=== PATIENT | male | born 1975 | race Two or more races ===

== ENCOUNTER 2020-03-20 13:58 | Emergency (ER) | payer MEDICAID ==
[~2020-03-20] VITALS: Ht 160 cm; Wt 90.7 kg
[2020-03-20 14:04] VITALS: BP 143/81
--- NOTE | 2020-03-20 14:08 | NUR ---
WAITING FOR ER MD TO SEE; PLACED TO ER CHAIR 2
[2020-03-20] MEDS ORDERED: KETOROLAC TROMETHAMINE INJ 30 MG/ML VIAL ONE (14:57)
[2020-03-20] MEDS ORDERED: LIDOCAINE HCL/PF 1% 30 ML SDV ONE (14:59)
[2020-03-20] MEDS ORDERED: LIDOCAINE 1% INJ 50 ML MDV IJ ONE (15:00)
[2020-03-20] MEDS ORDERED: KETOROLAC TROMETHAMINE INJ 60 MG/2 ML VIAL IM ONE (15:00)
--- NOTE | 2020-03-20 15:28 | NUR ---
EMT WAS AT THE BEDSIDE FOR WOUND CLEANING, FLUSH AND DRESSIGN.
--- NOTE | 2020-03-20 15:29 | NUR ---
Patient discharged to home in stable condition. Written and verbal after care instructions given. Patient verbalizes understanding of instruction. Pt ambulatory with a steady gait
== END 2020-03-20 15:32 | disposition home or self-care (01) ==
LOC: ER 14:07
DX: S61.031A Puncture wound without foreign body of right thumb without damage to nail, initial encounter (principal); W22.8XXA Striking against or struck by other objects, initial encounter; Y93.89 Activity, other specified; Y92.89 Other specified places as the place of occurrence of the external cause; Y99.8 Other external cause status
CPT/HCPCS: 73120; 96372; 99283; J1885; J3490